=== PATIENT | female | born 2000 | race Caucasian/White ===

== ENCOUNTER → 2024-08-15 10:39 | Outpatient (BNVA) | payer OTHER, SELFPAY | PROVIDERS: Visit Provider Internal Medicine | DX: S43.52XA Sprain of left acromioclavicular joint, initial encounter (principal); X50.3XXA Overexertion from repetitive movements, initial encounter | CPT/HCPCS: 73030; 99203 ==

== ENCOUNTER → 2024-08-19 11:02 | Outpatient (BNVA) | payer OTHER, SELFPAY | PROVIDERS: Visit Provider Internal Medicine | DX: S43.52XA Sprain of left acromioclavicular joint, initial encounter (principal); X50.3XXA Overexertion from repetitive movements, initial encounter | CPT/HCPCS: 99213 ==

== ENCOUNTER → 2024-08-29 10:57 | Outpatient (BNVA) | payer OTHER, SELFPAY | PROVIDERS: Visit Provider Internal Medicine | DX: S43.52XA Sprain of left acromioclavicular joint, initial encounter (principal); X50.3XXA Overexertion from repetitive movements, initial encounter; Z02.79 Encounter for issue of other medical certificate | CPT/HCPCS: 99213 ==

== ENCOUNTER → 2024-09-07 10:25 | Outpatient (BNVA) | payer OTHER, SELFPAY | PROVIDERS: Visit Provider Internal Medicine | DX: S43.52XD Sprain of left acromioclavicular joint, subsequent encounter (principal); X50.3XXD Overexertion from repetitive movements, subsequent encounter | CPT/HCPCS: 99213 ==

== ENCOUNTER 2025-01-26 11:46 | Outpatient (REF) | payer OTHER, SELFPAY ==
--- NOTE | ~2025-01-26 | XR_ITS ---
EXAMINATION: XR SHOULDER, LEFT CLINICAL INFORMATION: M25.519 - Pain in unspecified shoulder COMPARISON: August 15, 2024 TECHNIQUE: AP external rotation, Grashey, scapular Y, and axillary views of the left shoulder. FINDINGS: No acute cortical disruption or malalignment. No lytic or blastic lesions. No soft tissue calcifications. No metallic or radiopaque foreign body. XR/XR shoulder LT min 2V IMPRESSION: Normal x-ray left shoulder. Electronically signed by: Aubrey Borjas MD 01/26/2025 02:01 PM EDT
== END 2025-01-26 11:47 | disposition home or self-care (01) ==
LOC: HO.HOSX 11:46
PROVIDERS: Visit Provider Orthopaedic Surgery
DX: S43.432A Superior glenoid labrum lesion of left shoulder, initial encounter (principal); X50.0XXA Overexertion from strenuous movement or load, initial encounter; Y92.69 Other specified industrial and construction area as the place of occurrence of the external cause; Y99.0 Civilian activity done for income or pay
CPT/HCPCS: 73030; 99202

== ENCOUNTER 2025-01-26 13:26 | Outpatient (AMB) | payer OTHER, SELFPAY ==
--- NOTE | 2025-01-26 13:57 | A.OFFVIS_ITS ---
Vital Signs 01/26/25 14:02 Height 5 ft 3 in Weight 135 lb BMI 23.9 Handedness Right Intake Visit Reasons: New Pt - WC - Left Shoulder 08/10/24 Allergies No Known Allergies Allergy (Verified 01/26/25 14:01) HPI HPI New Pt - WC - Left Shoulder 08/10/24: Details: Ignacia is a 24 year old right hand dominant female who presents today for a New Patient visit with complaints of Left Shoulder Pain. 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 Since this injury she was being seen at [facility] where they ordered an MRI - this showed posterior labral pathology suggestive of posterior subluxation. She has done extensive physical therapy with mild improvement - at [facility] in [place]. She remains out of work at this time [facility] has suggested possible surgical intervention in the form of Left Posterior Labral Repair. She is seeking a second opinion due to them not knowing what else to do. She reports having continued mild pain with certain movements such as lifting or anything reaching behind the back. Says she feels the pull as soon as she tried to reach behind her. Her initial injury was in July of 2024 and she had her left shoulder injected on 12/28/24. This is been very helpful for her and she feels like she is getting some of her strength back. 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 No bicipital groove tenderness to palpation. She has a negative Reform's and a negative empty can. Negative lift-off. Mildly positive posterior jerk test and negative crank test. 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 She recently had a intra-articular injection which seems to have helped significantly. I recommend that she remain on light duty and work with PT on strengthening and scapular stabilization to try to get back to 100%. She feels that she is improving for the 1st time since the injury. Surgical intervention remains a possibility but given the recent injection and the length of recovery typically required for a labral surgery, I think it most prudent that she remain on light duty, continue PT and follow up in 6 weeks for re-evaluation. I e xplained this to her. She expressed understanding. Orders: Orders XR shoulder LT min 2V 01/26/25 M25.519 - Pain in unspecified shoulder Coding Level of Care Code New Pt Level 4 (76799) Diagnoses Labral tear of shoulder S43.439A
[2025-01-26 14:02] VITALS: BMI 23.9
== END 2025-01-26 14:37 | disposition home or self-care (01) ==
LOC: HO.HOS 13:26
PROVIDERS: Visit Provider Orthopaedic Surgery
DX: S43.439A Superior glenoid labrum lesion of unspecified shoulder, initial encounter (principal)
CPT/HCPCS: 99204

== ENCOUNTER → 2025-01-26 13:37 | Outpatient (BNV) | payer OTHER, SELFPAY | PROVIDERS: Visit Provider Radiology Diagnostic Radiology | DX: M25.512 Pain in left shoulder (principal) | CPT/HCPCS: 73030 ==

== ENCOUNTER 2025-03-09 13:43 | Outpatient (AMB) | payer OTHER, SELFPAY ==
[2025-03-09 13:45] VITALS: BMI 23.9
--- NOTE | 2025-03-09 13:45 | A.OFFVIS_ITS ---
Vital Signs 03/09/25 13:45 Height 5 ft 3 in Weight 135 lb BMI 23.9 Intake Visit Reasons: OV-Lt Shoulder WC DOI: 08/10/24 Intake Note: Ignacia is a 24 year old right hand dominant female who presents today for a follow up of her Left Shoulder Labral Tear. This is a work related injury from 08/10/24. 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 She reports that she is feeling some mild improvements. Left Shoulder injection @[facility] 12/28/24. Allergies No Known Allergies Allergy (Verified 01/26/25 14:01) HPI HPI OV-Lt Shoulder WC DOI: 08/10/24: Details: Ignacia is a 24 year old right hand dominant female who presents today for a follow up of her Left Shoulder Labral Tear. This is a work related injury from 08/10/24. 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 She reports that she is feeling some mild improvements. She still has stiffness in internal rotation and pain with reaching. Left Shoulder injection @[facility] 12/28/24. 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 She is slowly improving with PT and nearing RTW. Given her occupation however she cannot return until she is 100%. I recommend continue PT and continue OOW. I anticiapte RTW without restrictions in 6 weeks. Coding Level of Care Code Est Pt Level 3 ([id number]) Diagnoses Labral tear of shoulder S43.439A
== END 2025-03-09 14:27 | disposition home or self-care (01) ==
LOC: HO.HOS 13:44
PROVIDERS: Visit Provider Orthopaedic Surgery
DX: S43.432A Superior glenoid labrum lesion of left shoulder, initial encounter (principal)
CPT/HCPCS: 99213

== ENCOUNTER → 2025-03-09 13:43 | Outpatient (BNVA) | payer OTHER, SELFPAY | PROVIDERS: Visit Provider Orthopaedic Surgery | DX: S43.432D Superior glenoid labrum lesion of left shoulder, subsequent encounter (principal) | CPT/HCPCS: 99212 ==

== ENCOUNTER 2025-04-20 13:42 | Outpatient (AMB) | payer OTHER, SELFPAY ==
[2025-04-20 13:46] VITALS: BMI 23.9
--- NOTE | 2025-04-20 13:46 | MHC.OFFVIS ---
Vital Signs 04/20/25 13:46 Height 5 ft 3 in Weight 135 lb BMI 23.9 Intake Visit Reasons: OV - Left Shoulder WC DOI 08/10/24 Intake Note: Ignacia is a 24 year old right hand dominant female who presents today for a follow up of her Left Shoulder Labral Tear. This is a work related injury from 08/10/24. 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 Currently she reports that she is doing well with improved pain and some limitations with behind the back. Would like to return to work. Allergies No Known Allergies Allergy (Verified 01/26/25 14:01) HPI HPI OV - Left Shoulder WC DOI 08/10/24: Details: Ignacia is a 24 year old right hand dominant female who presents today for a follow up of her Left Shoulder Labral Tear. This is a work related injury from 08/10/24. 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 Currently she reports that she is doing well with improved pain and some limitations with behind the back. Would like to return to work. 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 Negative Union's. Negative impingement. Negative crank. Vital Signs: BMI result Body Mass Index 23.9 Assessment & Plan Assessment & Plan (1) Labral tear of shoulder: Code(s): S43.439A - Superior glenoid labrum lesion of unspecified shoulder, initial encounter Category: Medical Plan: A labral tear left shoulder. Improving with conservative management. She is ready to go back to work without restrictions. I informed her of some of the high risk activities and motions she should avoid. She will follow up in 2 months Coding Level of Care Code Est Pt Level 4 (17658) Diagnoses Labral tear of shoulder S43.439A
== END 2025-04-20 14:06 | disposition home or self-care (01) ==
LOC: HO.HOS 13:43
PROVIDERS: Visit Provider Orthopaedic Surgery
DX: S43.432A Superior glenoid labrum lesion of left shoulder, initial encounter (principal)
CPT/HCPCS: 99213

== ENCOUNTER → 2025-04-20 13:42 | Outpatient (BNVA) | payer OTHER, SELFPAY | PROVIDERS: Visit Provider Orthopaedic Surgery | DX: S43.432D Superior glenoid labrum lesion of left shoulder, subsequent encounter (principal) | CPT/HCPCS: 99212 ==